=== PATIENT | male | born 1990 | race American Indian/Alaskan Native ===

== ENCOUNTER 2020-02-15 11:39 | Emergency (ER) | payer SELFPAY ==
[2020-02-15] MEDS ORDERED: IPRATROPIUM 0.02% NEBU 2.5 ML IH ONE (11:54)
[2020-02-15] MEDS ORDERED: ALBUTEROL 2.5 MG/3 ML NEBU IH ONE (11:54)
[2020-02-15] MEDS ORDERED: dexAMETHasone 20 MG/5 ML VIAL IV ONE (11:58)
[2020-02-15] MEDS ORDERED: MAGNESIUM SULFATE 1 GM in SODIUM CHLORIDE 0.9% 50 ML IV ONE (12:00)
--- NOTE | 2020-02-15 12:34 | XRay Report ---
CHEST 1 VIEW INDICATION: Chest Pain. COMPARISON: None FINDINGS: Support devices: None. Heart: Within normal limits. Lungs/Pleura: No acute air space or interstitial disease. Additional findings: None. IMPRESSION: No acute findings. Signer Name: Ronald Xavier Jr, MD Signed: 02/15/2020 12:30 PM Workstation Name: [id number]
[2020-02-15 13:04] LABS: Basophils # (Auto) 0.1 K/mm3 (0.0-0.1); Basophils % (Auto) 0.6 % (0.0-1.8); Eosinophils # (Auto) 0.5 K/mm3 (0.0-0.4); Eosinophils % (Auto) 3.4 % (0.0-4.3); Lymphocytes # (Auto) 2.9 K/mm3 (1.2-5.4); Lymphocytes % (Auto) 21.2 % (13.4-35.0); Mean Corpuscular HGB Conc 34 % (32-34); Mean Corpuscular Volume 89 fl (84-94); Monocytes % (Auto) 7.4 % (0.0-7.3); Platelet Count 344 K/mm3 (140-440); Red Blood Count 5.26 M/mm3 (3.65-5.03); Red Cell Distribution Width 14.7 % (13.2-15.2)
[2020-02-15 13:44] LABS: Alanine Aminotransferase 22 units/L (7-56); Albumin 4.5 g/dL (3.9-5); BUN/Creatinine Ratio 11; Blood Urea Nitrogen 10 mg/dL (9-20); Calcium 9.5 mg/dL (8.4-10.2); Hemolysis Index 5
[2020-02-15 14:35] LABS: ABG Base Excess 0.8 mmol/L (-2.0-3.0); ABG HCO3 24.8 mmol/L (20.0-26.0); ABG Methemoglobin 0.6 % (0.0-1.5); ABG PCO2 37.7 mm Hg; ABG PH 7.436 pH Units (7.350-7.450); ABG PO2 73.4 mm Hg (80.0-90.0)
[2020-02-15] MEDS ORDERED: cefTRIAXone/NS 1 GM/50 ML 1 GM/50 ML BAG IV ONE (14:46)
[2020-02-15] MEDS ORDERED: AZITHROMYCIN 500 MG in SODIUM CHLORIDE 0.9% 250ML 250 ML IV ONE (14:47)
[2020-02-15] MEDS ORDERED: LEVALBUTEROL 0.63 MG/3 ML NEBU IH ONE (14:47)
[2020-02-15 15:04] VITALS: BP 147/101
--- NOTE | 2020-02-15 15:41 | Emergency Department Report ---
ED Shortness of Breath HPI - General Chief Complaint: Dyspnea/Respdistress Stated Complaint: ASTHMA Time Seen by Provider: 02/15/20 11:58 Source: patient Mode of arrival: Ambulatory Limitations: No Limitations - History of Present Illness Initial Comments: Patient is a 29-year-old male who presents emergency room with complaints of shortness of breath that began 3 days ago. He has associated dry cough and wheezing. He states that he is only able to take a couple steps before he begins to feel short of breath. He denies any history of asthma. He states he did have bronchitis approximately 3 years ago. He denies any fever, chest pain, leg swelling, nausea, vomiting, diarrhea. He states that he was in [place] 2 days ago around several people. He denies any known sick contacts with COV[facility]. He states he is a non-smoker. He states that he is around several people who do smoke. He denies any known past medical history. He denies any allergies to medications. - Related Data Previous Rx's Medication Instructions Recorded Last Taken Type Albuterol Sulfate [Albuterol 0.63% 0.63 mg IH TID PRN #1 box 02/15/20 Unknown Rx NEBS] Albuterol Sulfate [Proventil Hfa] 6.7 gm IH TID PRN #1 hfa.aer.ad 02/15/20 Unknown Rx Amoxicillin/Potassium Clav 1 each PO BID 10 Days #20 tablet 02/15/20 Unknown Rx [Augmentin 875-125 Tablet] Azithromycin [Zithromax TAB] 250 mg PO QDAY 4 Days #4 tablet 02/15/20 Unknown Rx Nebulizer and Compressor [Easy Air 1 each MC TID PRN #1 each 02/15/20 Unknown Rx Compressor Nebulizer] predniSONE [Deltasone] 20 mg PO QDAY 6 Days #12 tab 02/15/20 Unknown Rx Allergies Allergy/AdvReac Type Severity Reaction Status Date / Time No Known Allergies Allergy Verified 02/15/20 11:51 ED Review of Systems ROS: Stated complaint: ASTHMA Other details as noted in HPI Comment: All other systems reviewed and negative ED Past Medical Hx - Past Medical History Previous Medical History?: Yes Hx Asthma: Yes - Surgical History Past Surgical History?: No - Social History Smoking Status: Never Smoker Substance Use Type: None - Medications Home Medications: Home Medications Medication Instructions Recorded Confirmed Last Taken Type Albuterol Sulfate [Albuterol 0.63% 0.63 mg IH TID PRN #1 box 02/15/20 Unknown Rx NEBS] Albuterol Sulfate [Proventil Hfa] 6.7 gm IH TID PRN #1 hfa.aer.ad 02/15/20 Unknown Rx Amoxicillin/Potassium Clav 1 each PO BID 10 Days #20 tablet 02/15/20 Unknown Rx [Augmentin 875-125 Tablet] Azithromycin [Zithromax TAB] 250 mg PO QDAY 4 Days #4 tablet 02/15/20 Unknown Rx Nebulizer and Compressor [Easy Air 1 each MC TID PRN #1 each 02/15/20 Unknown Rx Compressor Nebulizer] predniSONE [Deltasone] 20 mg PO QDAY 6 Days #12 tab 02/15/20 Unknown Rx ED Physical Exam - General Limitations: No Limitations General appearance: alert - Head Head exam: Present: atraumatic, normocephalic - Eye Eye exam: Present: normal appearance - ENT ENT exam: Present: mucous membranes moist - Respiratory Respiratory exam: Present: respiratory distress (moderate), wheezes (bilaterally), rhonchi (bilaterally), accessory muscle use, decreased breath sounds, prolonged expiratory. Absent: rales, stridor, chest wall tenderness - Cardiovascular Cardiovascular Exam: Present: normal rhythm, tachycardia, normal heart sounds. Absent: systolic murmur, diastolic murmur, rubs, gallop - Neurological Exam Neurological exam: Present: alert, oriented X3 - Psychiatric Psychiatric exam: Present: normal affect, normal mood - Skin Skin exam: Present: warm, dry, intact ED Course Vital Signs 02/15/20 02/15/20 02/15/20 11:41 14:50 15:03 Temperature 98.6 F Pulse Rate 99 H 89 Pulse Rate [ Anterior Bilateral Throughout] Respiratory 40 H 20 Rate Respiratory Rate [Anterior Bilateral Throughout] Blood Pressure 194/128 Blood Pressure 161/100 147/101 [Left] O2 Sat by Pulse 95 97 Oximetry 02/15/20 02/15/20 15:41 18:14 Temperature Pulse Rate 113 H Pulse Rate [ 89 Anterior Bilateral Throughout] Respiratory Rate Respiratory 18 Rate [Anterior Bilateral Throughout] Blood Pressure Blood Pressure [Left] O2 Sat by Pulse 96 Oximetry - Reevaluation(s) Reevaluation #1: 02/15/20 14:40 Patient given continuous neb, IV Dex, IV magnesium, continues to have audible wheezing, discussed case with Dr. Martinez ER attending who recommended giving patient Xopenex and antibiotics, he believes most likely due to bacterial bronchitis given patient's lab work, chest x-ray is normal, he states that patient does not need to be worked up as a PUI for COVID 19, he states does not meet admission criteria based on ABG ED Medical Decision Making - Lab Data Result diagrams: 02/15/20 12:17 02/15/20 12:17 Lab Results 02/15/20 02/15/20 02/15/20 Range/Units 12:17 12:17 14:30 WBC 13.5 H (4.5-11.0) K/mm3 RBC 5.26 H (3.65-5.03) M/mm3 Hgb 16.0 H (11.8-15.2) gm/dl Hct 47.0 H (35.5-45.6) % MCV 89 (84-94) fl MCH 30 (28-32) pg MCHC 34 (32-34) % RDW 14.7 (13.2-15.2) % Plt Count 344 (140-440) K/mm3 Lymph % (Auto) 21.2 (13.4-35.0) % Baldwin % (Auto) 7.4 H (0.0-7.3) % Eos % (Auto) 3.4 (0.0-4.3) % Baso % (Auto) 0.6 (0.0-1.8) % Lymph # 2.9 (1.2-5.4) K/mm3 Baldwin # 1.0 H (0.0-0.8) K/mm3 Eos # 0.5 H (0.0-0.4) K/mm3 Baso # 0.1 (0.0-0.1) K/mm3 Seg Neutrophils % 67.4 (40.0-70.0) % Seg Neutrophils # 9.1 H (1.8-7.7) K/mm3 ABG pH 7.436 (7.350-7.450) pH Units ABG pCO2 37.7 mm Hg ABG pO2 73.4 L (80.0-90.0) mm Hg ABG HCO3 24.8 (20.0-26.0) mmol/L ABG O2 Saturation 96.0 (95.0-99.0) % ABG O2 Content 21.8 (0.0-44) ABG Base Excess 0.8 (-2.0-3.0) mmol/L ABG Hemoglobin 16.5 (14.0-18.0) gm/dl ABG Carboxyhemoglobin 1.6 (0.0-5.0) % ABG Methemoglobin 0.6 (0.0-1.5) % Oxyhemoglobin 93.9 L (95.0-99.0) % FiO2 21 % Sodium 138 (137-145) mmol/L Potassium 4.1 (3.6-5.0) mmol/L Chloride 98.0 (98-107) mmol/L Carbon Dioxide 23 (22-30) mmol/L Anion Gap 21 mmol/L BUN 10 (9-20) mg/dL Creatinine 0.9 (0.8-1.5) mg/dL Estimated GFR > 60 ml/min BUN/Creatinine Ratio 11 % Glucose 103 H (75-100) mg/dL Calcium 9.5 (8.4-10.2) mg/dL Total Bilirubin 0.70 (0.1-1.2) mg/dL AST 19 (5-40) units/L ALT 22 (7-56) units/L Alkaline Phosphatase 90 (35-129) units/L Troponin T < 0.010 (0.00-0.029) ng/mL NT-Pro-B Natriuret Pep 16.15 (0-450) pg/mL Total Protein 8.3 H (6.3-8.2) g/dL Albumin 4.5 (3.9-5) g/dL Albumin/Globulin Ratio 1.2 % - Radiology Data Radiology results: report reviewed CHEST 1 VIEW INDICATION: Chest Pain. COMPARISON: None FINDINGS: Support devices: None. Heart: Within normal limits. Lungs/Pleura: No acute air space or interstitial disease. Additional findings: None. IMPRESSION: No acute findings. Signer Name: Ronald Peralta Jr, MD Signed: 02/15/2020 12:30 PM Workstation Name: [id number] Transcribed By: TTR Dictated By: RONALD PERALTA JR, MD Electronically Authenticated By: RONALD PERALTA JR, MD Signed Date/Time: 02/15/201229 DD/ 29 TD/TT: - Medical Decision Making Patient is a 29-year-old male who presents emergency room with complaints of shortness of breath that began 3 days ago. He has associated dry cough and wheezing. He states that he is only able to take a couple steps before he begins to feel short of breath. He denies any history of asthma. He states he did have bronchitis approximately 3 years ago. He denies any fever, chest pain, leg swelling, nausea, vomiting, diarrhea. He states that he was in [place] 2 days ago around several people. He denies any known sick contacts with COVID 19. He states he is a non-smoker. He states that he is around several people who do smoke. He denies any known past medical history. He denies any allergies to medications. Initial vitals with tachypnea and elevated blood pressure which improved upon repeat. On initial examination moderate respiratory distress, bilateral wheezing and rhonchi. Patient given continuous neb treatment, steroids, magnesium and continued to have wheezing. Patient given Xopenex, azithromycin and ceftriaxone. On reexamination of patient he is feeling much better, he states he no longer feels short of breath. Patient was ambulated in the emergency room for several minutes and maintained oxygen saturation of 96% on RA and his heart rate was stable at 113, he states he did not feel short of breath while walking around. cbc consistent with bacterial bronchitis, will cover pt for CAP. ABG without signs of severe hypoxia. Given prescription for Augmentin, azithromycin, prednisone, albuterol inhaler, albuterol nebulizer treatments and machine. Advised patient Please take medication as prescribed. Please avoid any smokers. do not use the inhaler and nebulizer together, if you use one do not use the other. you can not use the albuterol (inhaler or nebulizer) more than 4 times a day. Please follow-up with a primary care doctor in the next 2 days for reexamination. Return to the [facility] room immediately for any new or worsening symptoms including but not limited to worsening shortness of breath, chest pain, fevers, dizziness, etc. discussed in detail with patient strict return precautions. Critical care attestation.: If time is entered above; I have spent that time in minutes in the direct care of this critically ill patient, excluding procedure time. ED Disposition Clinical Impression: Asthma exacerbation Qualifiers: Asthma severity: unspecified severity Asthma persistence: unspecified Qualified Code(s): J45.901 - Unspecified asthma with (acute) exacerbation Acute bronchitis Qualifiers: Bronchitis organism: unspecified organism Qualified Code(s): J20.9 - Acute bronchitis, unspecified Disposition: DC-01 TO HOME OR SELFCARE Is pt being admited?: No Does the pt Need Aspirin: No Condition: Stable Instructions: Asthma (ED), Acute Bronchitis (ED) Additional Instructions: Please take medication as prescribed. Please avoid any smokers. do not use the inhaler and nebulizer together, if you use one do not use the other. you can not use the albuterol (inhaler or nebulizer) more than 4 times a day. Please follow-up with a primary care doctor in the next 2 days for reexamination. Return to the emergency room immediately for any new or worsening symptoms including but not limited to worsening shortness of breath, chest pain, fevers, dizziness, etc. Prescriptions: Albuterol Sulfate [Albuterol 0.63% NEBS] 0.63 mg IH TID PRN #1 box PRN Reason: Wheezing Amoxicillin/Potassium Clav [Augmentin 875-125 Tablet] 1 each PO BID 10 Days #20 tablet predniSONE [Deltasone] 20 mg PO QDAY 6 Days #12 tab Nebulizer and Compressor [Easy Air Compressor Nebulizer] 1 each MC TID PRN #1 each PRN Reason: Shortness Of Breath Albuterol Sulfate [Proventil Hfa] 6.7 gm IH TID PRN #1 hfa.aer.ad PRN Reason: Shortness Of Breath Azithromycin [Zithromax TAB] 250 mg PO QDAY 4 Days #4 tablet Referrals: PATRICK EATON MD [Staff Physician] - 2-3 Days Forms: Work/School Release Form(ED) Time of Disposition: 18:16 Print Language: THAI
== END 2020-02-15 18:33 | disposition home or self-care (01) ==
LOC: ED 11:39
DX: J45.901 Unspecified asthma with (acute) exacerbation (principal)
CPT/HCPCS: 36415; 71045; 80053; 82803; 83880; 84484; 85025; 93005; 93010; 94644; 96365; 96366; 96368; 96375; 99284; J0456; J0696; J1100; J3475; J7050

== ENCOUNTER 2021-10-27 14:02 | Emergency (ER) | payer SELFPAY ==
[2021-10-27] MEDS ORDERED: cloNIDine 0.2 MG TAB PO ONE (14:44)
[2021-10-27 15:46] LABS: Alanine Aminotransferase 25 units/L (7-56); Albumin 4.6 g/dL (3.9-5); BUN/Creatinine Ratio 10; Blood Urea Nitrogen 10 mg/dL (9-20); Calcium 9.4 mg/dL (8.4-10.2); Hemolysis Index 63
[2021-10-27 16:04] LABS: Basophils # (Auto) 0.1 K/mm3 (0.0-0.1); Basophils % (Auto) 0.5 % (0.0-1.8); Eosinophils # (Auto) 0.1 K/mm3 (0.0-0.4); Eosinophils % (Auto) 1.1 % (0.0-4.3); Hematocrit 49.4 % (35.5-45.6); Hemoglobin 16.1 gm/dl (11.8-15.2); Lymphocytes # (Auto) 2.6 K/mm3 (1.2-5.4); Lymphocytes % (Auto) 24.9 % (13.4-35.0); Mean Corpuscular HGB Conc 33 % (32-34); Mean Corpuscular Volume 90 fl (84-94); Monocytes # (Auto) 0.8 K/mm3 (0.0-0.8); Monocytes % (Auto) 7.4 % (0.0-7.3); Platelet Count 384 K/mm3 (140-440); Red Blood Count 5.49 M/mm3 (3.65-5.03); Red Cell Distribution Width 14.7 % (13.2-15.2)
[2021-10-27] MEDS ORDERED: LIDOCAINE-MPF (1%) 10 MG/1 ML VIAL 5 ML INFILTRATI ONE (16:13)
--- NOTE | 2021-10-27 16:18 | Emergency Department Report ---
ED Male HPI - General Chief complaint: Urogenital-Male Stated complaint: DISCHARGE Time Seen by Provider: 10/27/21 14:22 Source: patient Mode of arrival: Ambulatory Limitations: No Limitations - History of Present Illness Initial comments: 31-year-old -[place] male presents to the emergency room complaining of penile discharge that started today. Patient admits to having unprotected intercourse. Each reports he does not have a past medical history but review of chart shows that patient has hypertension. He came in today with a blood pr essure of 200/132. Patient is asymptomatic. Patient denies any testicular pain has no testicular swelling. No fever no chills, no nausea no vomiting or abdominal pain. Patient denies of chest pain shortness of breath headache change in vision. MD Complaint: penile discharge -: This afternoon Location: penis Radiation: none Severity scale (0 -10): 0 Improves with: none Worsens with: none new sexual partner discharge. denies: swelling, mass, urinary retention, blood in urine, dysuria, fever, nausea/vomiting, incontinence - Related Data Previous Rx's Medication Instructions Recorded Last Taken Type Albuterol Sulfate [Albuterol 0.63% 0.63 mg IH TID PRN #1 box 02/15/20 Unknown Rx NEBS] Albuterol Sulfate [Proventil Hfa] 6.7 gm IH TID PRN #1 hfa.aer.ad 02/15/20 Unknown Rx Amoxicillin/Potassium Clav 1 each PO BID 10 Days #20 tablet 02/15/20 Unknown Rx [Augmentin 875-125 Tablet] Azithromycin [Zithromax TAB] 250 mg PO QDAY 4 Days #4 tablet 02/15/20 Unknown Rx Nebulizer and Compressor [Easy Air 1 each MC TID PRN #1 each 02/15/20 Unknown Rx Compressor Nebulizer] predniSONE [Deltasone] 20 mg PO QDAY 6 Days #12 tab 02/15/20 Unknown Rx Doxycycline Hyclate [Doxycycline 100 mg PO Q12HR 10 Days #20 tab 10/27/21 Unknown Rx Hyclate TAB] Allergies Allergy/AdvReac Type Severity Reaction Status Date / Time No Known Allergies Allergy Verified 10/27/21 14:05 ED Review of Systems ROS: Stated complaint: DISCHARGE Other details as noted in HPI Comment: All other systems reviewed and negative Constitutional: denies: chills, fever Eyes: denies: eye pain, eye discharge, vision change ED Past Medical Hx - Past Medical History Hx Asthma: Yes - Surgical History Past Surgical History?: No - Social History Smoking Status: Never Smoker Substance Use Type: None - Medications Home Medications: Home Medications Medication Instructions Recorded Confirmed Last Taken Type Albuterol Sulfate [Albuterol 0.63% 0.63 mg IH TID PRN #1 box 02/15/20 Unknown Rx NEBS] Albuterol Sulfate [Proventil Hfa] 6.7 gm IH TID PRN #1 hfa.aer.ad 02/15/20 Unknown Rx Amoxicillin/Potassium Clav 1 each PO BID 10 Days #20 tablet 02/15/20 Unknown Rx [Augmentin 875-125 Tablet] Azithromycin [Zithromax TAB] 250 mg PO QDAY 4 Days #4 tablet 02/15/20 Unknown Rx Nebulizer and Compressor [Easy Air 1 each MC TID PRN #1 each 02/15/20 Unknown Rx Compressor Nebulizer] predniSONE [Deltasone] 20 mg PO QDAY 6 Days #12 tab 02/15/20 Unknown Rx Doxycycline Hyclate [Doxycycline 100 mg PO Q12HR 10 Days #20 tab 10/27/21 Unknown Rx Hyclate TAB] ED Physical Exam - General Limitations: No Limitations General appearance: alert, in no apparent distress - Head Head exam: Present: atraumatic, normocephalic - Eye Eye exam: Present: normal appearance - ENT ENT exam: Present: mucous membranes moist - Neck Neck exam: Present: normal inspection. Absent: full ROM - Respiratory Respiratory exam: Present: normal lung sounds bilaterally. Absent: respiratory distress, accessory muscle use - Cardiovascular Cardiovascular Exam: Present: regular rate, normal rhythm. Absent: systolic murmur, diastolic murmur, rubs, gallop - GI/Abdominal GI/Abdominal exam: Present: soft, normal bowel sounds - Rectal Rectal exam: Present: deferred - Extremities Exam Extremities exam: Present: normal inspection - Back Exam Back exam: Present: normal inspection - Neurological Exam Neurological exam: Present: alert, oriented X3. Absent: normal gait - Psychiatric Psychiatric exam: Present: normal affect, normal mood - Skin Skin exam: Present: warm, dry, intact, normal color. Absent: rash ED Course Vital Signs 10/27/21 10/27/21 10/27/21 14:10 14:32 14:33 Temperature 98.5 F Pulse Rate 103 H 99 H Respiratory 20 12 Rate Blood Pressure 211/135 200/132 Blood Pressure [Left] O2 Sat by Pulse 95 99 98 Oximetry 10/27/21 10/27/21 10/27/21 14:51 14:57 15:38 Temperature Pulse Rate 99 H 99 H 90 Respiratory 12 12 Rate Blood Pressure 200/132 Blood Pressure 200/132 177/113 [Left] O2 Sat by Pulse 98 98 Oximetry ED Medical Decision Making - Lab Data Result diagrams: 10/27/21 15:11 10/27/21 15:11 Lab Results 10/27/21 10/27/21 Range/Units 15:11 15:11 WBC 10.6 (4.5-11.0) K/mm3 RBC 5.49 H (3.65-5.03) M/mm3 Hgb 16.1 H (11.8-15.2) gm/dl Hct 49.4 H (35.5-45.6) % MCV 90 (84-94) fl MCH 29 (28-32) pg MCHC 33 (32-34) % RDW 14.7 (13.2-15.2) % Plt Count 384 (140-440) K/mm3 Lymph % (Auto) 24.9 (13.4-35.0) % Webb % (Auto) 7.4 H (0.0-7.3) % Eos % (Auto) 1.1 (0.0-4.3) % Baso % (Auto) 0.5 (0.0-1.8) % Lymph # (Auto) 2.6 (1.2-5.4) K/mm3 Webb # (Auto) 0.8 (0.0-0.8) K/mm3 Eos # (Auto) 0.1 (0.0-0.4) K/mm3 Baso # (Auto) 0.1 (0.0-0.1) K/mm3 Seg Neutrophils % 66.1 (40.0-70.0) % Seg Neutrophils # 7.0 (1.8-7.7) K/mm3 Sodium 141 (137-145) mmol/L Potassium 4.6 (3.6-5.0) mmol/L Chloride 102.4 (98-107) mmol/L Carbon Dioxide 25 (22-30) mmol/L Anion Gap 18 mmol/L BUN 10 (9-20) mg/dL Creatinine 1.0 (0.8-1.3) mg/dL Estimated GFR > 60 ml/min BUN/Creatinine Ratio 10 % Glucose 98 (75-100) mg/dL Calcium 9.4 (8.4-10.2) mg/dL Total Bilirubin 0.50 (0.1-1.2) mg/dL AST 20 (5-40) units/L ALT 25 (7-56) units/L Alkaline Phosphatase 93 (35-129) units/L Total Protein 8.1 (6.3-8.2) g/dL Albumin 4.6 (3.9-5) g/dL Albumin/Globulin Ratio 1.3 % - Medical Decision Making 31-year-old -[place] male presents to the emergency room complaining of penile discharge that started today. Patient admits to having unprotected intercourse. Each reports he does not have a past medical history but review of chart shows that patient has hypertension. He came in today with a blood pressure of 200/132. Patient is asymptomatic. Patient denies any testicular pain has no testicular swelling. No fever no chills, no nausea no vomiting or abdominal pain. Patient denies of chest pain shortness of breath headache change in vision. Patient given clonidine 0.2 mg p.o. Patient is given Rocephin 1 g IM. Patient CBC CMP was within normal limits. Patient be discharged home with a prescription for doxycycline referral to a primary care provider in the health department for full STD evaluation. Critical care attestation.: If time is entered above; I have spent that time in minutes in the direct care of this critically ill patient, excluding procedure time. ED Disposition Clinical Impression: Penile discharge, Concern about STD in male without diagnosis, Hypertensive emergency without congestive heart failure, Obesity (BMI 30.0-34.9) Disposition: 01 HOME / SELF CARE / HOMELESS Is pt being admited?: No Does the pt Need Aspirin: No Condition: Stable Instructions: Hypertension (ED), Hypertension, Adult, [id number], Urethritis, Adult Additional Instructions: Complete antibiotics. Follow-up at a health department for full STD evaluation. Follow-up with your primary care provider for treatment and management of your hypertension. Lose some weight exercise eat a low-sodium diet. Be sure to increase your water intake. Prescriptions: Doxycycline Hyclate [Doxycycline Hyclate TAB] 100 mg PO Q12HR 10 Days #20 tab Referrals: PRIMARY CAREMD [Primary Care Provider] - 3-5 Days [facility] [Outside] - 3-5 Days PATRICK EATON MD [Staff Physician] - 3-5 Days Forms: Work/School Release Form(ED) Time of Disposition: 16:19
[2021-10-27 16:41] VITALS: BP 131/95
== END 2021-10-27 17:05 | disposition home or self-care (01) ==
LOC: ED 14:02
DX: R33.9 Retention of urine, unspecified (principal); Z20.2 Contact with and (suspected) exposure to infections with a predominantly sexual mode of transmission; I11.0 Hypertensive heart disease with heart failure; I50.9 Heart failure, unspecified; J45.909 Unspecified asthma, uncomplicated; Z68.30 Body mass index [BMI] 30.0-30.9, adult; Z79.899 Other long term (current) drug therapy
CPT/HCPCS: 36415; 80053; 85025; 96372; 99283; J0696; J3490